=== PATIENT | female | born 1970 | race American Indian/Alaskan Native ===

== ENCOUNTER → 2021-09-23 | Outpatient (CLI) | payer MEDICAID | END | disposition home or self-care (01) | LOC: SLR 11:00 | PROVIDERS: ATTEND Internal Medicine Critical Care Medicine | DX: G47.33 Obstructive sleep apnea (adult) (pediatric) (principal); R40.0 Somnolence; I10 Essential (primary) hypertension | CPT/HCPCS: G0399 ==

== ENCOUNTER 2022-03-16 11:08 | Emergency (ER) | payer MEDICAID ==
[2022-03-16 11:45] VITALS: BP 152/91
--- NOTE | 2022-03-17 09:38 | Electrocardiograph Report ---
[facility] Test Date: 2022-03-16 Test Time: 11:59:12 Pat Name: MALACHI DENT Department: Room: Gender: [employer] Marker: DON : 1970 Requested By: AMARILIS LEWIS Order Number: [id number] Reading MD: Kris Ramos Measurements Intervals [place] Rate: 90 P: 51 AL: 167 QRS: 6 QRSD: 86 T: 30 QT: 353 QTc: 432 Interpretive Statements Sinus rhythm Probable anteroseptal infarct, old No previous ECG available for comparison Electronically Signed On 03-17-2022 9:38:43 EDT by Kris Ramos
== END 2022-03-16 21:52 | disposition left against medical advice (07) ==
LOC: ED 11:08
DX: R51.9 Headache, unspecified (principal); N64.4 Mastodynia; Z53.21 Procedure and treatment not carried out due to patient leaving prior to being seen by health care provider
CPT/HCPCS: 93005